=== PATIENT | male | born 1955 | race African-American/Black ===

== ENCOUNTER 2019-02-15 12:07 | Emergency (ER) | payer MEDICAID ==
[~2019-02-15] VITALS: Ht 177.8 cm; Wt 75.0 kg
[2019-02-15 12:23] VITALS: BP 137/82
[2019-02-15] MEDS ORDERED: IBUPROFEN 600MG TABLET PO ONE (12:45)
[2019-02-15] MEDS ORDERED: KETOROLAC 60MG/2ML VIAL IM ONE (13:30)
== END 2019-02-15 14:04 | disposition home or self-care (01) ==
LOC: ER 12:07
DX: M25.552 Pain in left hip (principal); F17.200 Nicotine dependence, unspecified, uncomplicated; F12.10 Cannabis abuse, uncomplicated; Z87.01 Personal history of pneumonia (recurrent); W18.30XA Fall on same level, unspecified, initial encounter; Y93.89 Activity, other specified; Y92.89 Other specified places as the place of occurrence of the external cause; Y99.8 Other external cause status
CPT/HCPCS: 73502; 73552; 96372; 99283; J1885

== ENCOUNTER 2019-03-18 17:07 | Emergency (ER) | payer MEDICAID ==
[~2019-03-18] VITALS: Ht 177.8 cm; Wt 68.0 kg
[2019-03-19 00:26] LABS: CHLORIDE 108 mEq/L (98-107)
[2019-03-19 00:31] LABS: BASOPHILS % 1.2 % (0.0-2.0); EOSINOPHILS % 12.7 % (0.0-5.0); HEMATOCRIT. 38.1 % (42.0-52.0); HEMOGLOBIN. 13.1 g/dL (14.0-18.0); LYMPHOCYTES % 28.6 % (20.0-50.0); MEAN CORPUSCULAR HEMOGLOBIN 33.7 pg (28.0-32.0); MEAN CORPUSCULAR VOLUME 97.9 fL (80.0-94.0); MEAN PLATELET VOLUME 7.4 fl (7.4-10.4); MONOCYTES % 12.3 % (2.0-8.0); NEUTROPHILS % 45.2 % (40.0-76.0); PLATELET 282 x1000/uL (130-400); RED BLOOD CELL COUNT 3.89 mill/uL (4.7-6.1); RED CELL DISTRIBUTION WIDTH 13.2 % (11.6-14.6)
[2019-03-19] MEDS ORDERED: ACETAMINOPHEN 325MG TABLET PO ONE (07:45)
[2019-03-19 11:27] VITALS: BP 0/0
== END 2019-03-19 11:28 | disposition home or self-care (01) ==
LOC: ER 17:07
DX: S09.8XXA Other specified injuries of head, initial encounter (principal); W07.XXXA Fall from chair, initial encounter; Y93.89 Activity, other specified; Y92.89 Other specified places as the place of occurrence of the external cause; Y99.8 Other external cause status; F12.10 Cannabis abuse, uncomplicated; Z87.01 Personal history of pneumonia (recurrent); Z88.9 Allergy status to unspecified drugs, medicaments and biological substances
CPT/HCPCS: 36415; 73030; 80053; 80320; 85025; 99284; G0480

== ENCOUNTER 2019-07-11 17:27 | Emergency (ER) | payer MEDICAID ==
[~2019-07-11] VITALS: Ht 172.7 cm; Wt 65.0 kg
[2019-07-11] MEDS ORDERED: PREGABALIN 50 MG CAPSULE PO SCH (18:00)
[2019-07-11] MEDS ORDERED: PREGABALIN 25MG CAPSULE PO NR (18:30)
[2019-07-11 18:46] VITALS: BP 153/59
== END 2019-07-11 18:47 | disposition home or self-care (01) ==
LOC: ER 17:27
DX: G62.9 Polyneuropathy, unspecified (principal); M79.672 Pain in left foot; M79.671 Pain in right foot; F12.10 Cannabis abuse, uncomplicated
CPT/HCPCS: 99283